=== PATIENT | female | born 1950 | race Caucasian/White ===

== ENCOUNTER → 2019-05-08 | Emergency (ER) | payer MEDICARE ==
[~2019-05-08] VITALS: Ht 162.6 cm; Wt 129.3 kg
[~2019-05-08] MED LIST: LIDOCAINE 1% HCL (LOCAL ANESTH.) INJ 20ML MDV IJ ONE; TETANUS-DIPTH-ACEL PERTUSSIS 0.5ML SYR Tdap IM ONE; cefTRIAXone SOD 1,000 MG VL IM ONE
[2019-05-08 13:13] VITALS: BP 161/77
== END | disposition home or self-care (01) ==
LOC: ER 10:51
DX: S02.31XA Fracture of orbital floor, right side, initial encounter for closed fracture (principal); H11.31 Conjunctival hemorrhage, right eye; W19.XXXA Unspecified fall, initial encounter; Y93.89 Activity, other specified; Y92.89 Other specified places as the place of occurrence of the external cause; Y99.8 Other external cause status
CPT/HCPCS: 12015; 70486; 90471; 90715; 96372; 99285; J0696; J2001